=== PATIENT | male | born 1965 | race Caucasian/White ===

== ENCOUNTER 2016-04-16 08:07 | Emergency (ER) | payer MEDICARE, OTHER ==
[~2016-04-16] VITALS: Ht 185.4 cm; Wt 89.0 kg
[~2016-04-16 08:07] MED LIST: CLIN-73 PO; HYDR-762 PO; IBUP-1542 PO; LORA1TAB PO; TRUV; [UNRECOGNIZED DRUG - CODE]
[2016-04-16 08:34] VITALS: Ht 185.4 cm; Wt 89.0 kg
[2016-04-16] MEDS ORDERED: BACTDS PO (09:05)
--- NOTE | 2016-04-16 10:42 | ERD ---
ER Documentation Chief Complaint Date/Time DATE: 04/16/16 TIME: 10:33 Chief Complaint PRODUCTIVE COUGH X5 DAYS. PT CONCERNED D/T SUPRESSED IMMUNE SYSTEM HPI 50-year-old male with a past medical history of HIV presents the ED complaining of a productive cough that occurred 5 days ago. States that he takes Truvada and Kaletra for his HIV. Reports that he is unsure what is his CD4 count. States that he usually sees his primary care physician however his primary care physician is retired. Reports that he also receives Bactrim for his cough for prophylaxis. States that he is here for a prescription for Bactrim. Denies any fever, shortness of breath, wheezing, abdominal pain, nausea, vomiting, chest pain, dyspnea on exertion, pleuritic chest pain. ROS All systems reviewed and are negative except as per history of present illness. 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 09/21/14 Reported Medications Lorazepam* (Lorazepam*) 1 Mg Tablet, 1 MG PO BID Y for ANXIETY, TAB 03/11/14 Hydrocodone Bit-Acetaminophen* ([place]*) 10-325 Mg Tablet, 1 TAB PO Q6 Y for PAIN , TAB 03/11/14 Lopinavir-Ritonavir* (Kaletra*) 1 Tab Tab 06/18/10 Emtricitabine-Tenofovir* (Truvada*) 1 Tab Tab 06/18/10 Allergies Allergies: Coded Allergies: Penicillins (Verified Allergy, Mild, 08/20/15) PMhx/Soc History of Surgery: Yes (appendix removed 20 years ago) Anesthesia Reaction: No Hx Neurological Disorder: No Hx Respiratory Disorders: No Hx Cardiac Disorders: No Hx Psychiatric Problems: No Hx Miscellaneous Medical Probl: Yes (pt has been HIV positive for 25 years) Hx Alcohol Use: No Hx Substance Use: No Hx Tobacco Use: Yes Smoking Status: Unknown if ever smoked Physical Exam Vitals Vital Signs Date Time Temp Pulse Resp B/P Pulse Ox O2 Delivery O2 Flow Rate FiO2 04/16/16 08:34 98.4 89 18 150/97 100 Physical Exam Const: [id number], well-nourished. In no acute distress. Head: Atraumatic, normocephalic Eyes: Normal Conjunctiva without injection. No purulent discharge. PERRL. EOMI ENT: Normal external ear. Ear canal without erythema. Tympanic membrane pearly contreras without effusion or bulging. Nasal canal clear with normal turbinates. Moist oropharynx without tonsillar exudates. Non-erythematous pharynx. Uvula midline. No drooling. No trismus. Neck: Full range of motion. No meningismus. No cervical lymphadenopathy. Resp: Clear to auscultation bilaterally. No wheezing, rhonchi, rales, or crackles. No accessory muscle use. No retractions. Cardio: Regular rate and rhythm. No murmurs, rubs or gallops. Abd: Soft, non tender, non distended. Normal bowel sounds. No palpable masses. No rebound tenderness. No guarding. Skin: No petechiae or rashes Back: No midline tenderness. No CVA tenderness. Ext: No cyanosis, or edema. Neur: Awake and alert. Psych: Normal Mood and Affect Procedures/MDM 50-year-old male with a past medical history of HIV presents the ED complaining of a productive cough that occurred 5 days ago. Patient is afebrile and nontoxic-appearing. This patient presents to the ED with symptoms consistent with a viral acute upper respiratory infection. Patient is afebrile and has normal vital signs. Patient's physical exam include lungs which were clear to auscultation and a normal pulse oximetry. Patient is speaking in full sentences. There is a low suspicion for anaphylaxis, foreign body aspiration, pneumonia, pneumothorax, pulmonary embolism, atypical ME, cardiac tamponade, epiglottitis, otitis media, otitis externa, viral/strep pharyngitis, sinusitis, peritonsillar abscess, mastoiditis, retropharyngeal abscess, meningitis, sepsis , Blaine's angina, acute abdomen or other emergent conditions. Patient will be given a prescription for Bactrim, prophylaxis for PCP pneumonia. Discharge medications: Bactrim Follow up with primary care physician in 1-2 days. Instructed patient to return to the ED sooner for any worsening symptoms. Patient's questions were answered. Patient understood and agreed with discharge plan. Patient discharged stable. Departure Diagnosis: Primary Impression: Cough Condition: Stable Patient Instructions: Bronchitis, Antiobiotic Treatment (Adult) Referrals: [facility] YOU HAVE RECEIVED A MEDICAL SCREENING EXAM AND THE RESULTS INDICATE THAT YOU DO NOT HAVE A CONDITION THAT REQUIRES URGENT TREATMENT IN THE EMERGENCY DEPARTMENT. FURTHER EVALUATION AND TREATMENT OF YOUR CONDITION CAN WAIT UNTIL YOU ARE SEEN IN YOUR DOCTORS OFFICE WITHIN THE NEXT 1-2 DAYS. IT IS YOUR RESPONSIBILITY TO MAKE AN APPOINTMENT FOR FOLOW-UP CARE. IF YOU HAVE A PRIMARY DOCTOR --you should call your primary doctor and schedule an appointment IF YOU DO NOT HAVE A PRIMARY DOCTOR YOU CAN CALL OUR PHYSICIAN REFERRAL HOTLINE AT IF YOU CAN NOT AFFORD TO SEE A PHYSICIAN YOU CAN CHOSE FROM THE FOLLOWING [facility] [address] [facility]. [facility] [address] [facility] [facility] [address] [facility] [facility] [address] [facility] [facility] [address] [facility]. [facility]. [address] [facility]. [facility] YOU HAVE RECEIVED A MEDICAL SCREENING EXAM AND THE RESULTS INDICATE THAT YOU DO NOT HAVE A CONDITION THAT REQUIRES URGENT TREATMENT IN THE EMERGENCY DEPARTMENT. FURTHER EVALUATION AND TREATMENT OF YOUR CONDITION CAN WAIT UNTIL YOU ARE SEEN IN YOUR DOCTORS OFFICE WITHIN THE NEXT 1-2 DAYS. IT IS YOUR RESPONSIBILITY TO MAKE AN APPOINTMENT FOR FOLOW-UP CARE. IF YOU HAVE A PRIMARY DOCTOR --you should call your primary doctor and schedule and appointment IF YOU DO NOT HAVE A PRIMARY DOCTOR YOU CAN CALL OUR PHYSICIAN REFERRAL HOTLINE AT . IF YOU CAN NOT AFFORD TO SEE A PHYSICIAN YOU CAN CHOSE FROM THE FOLLOWING [facility]: [facility] [address] [place], [place] [id number] [place] [address] [address] [place] [address] [facility] + [facility] [address] [place] [address] [facility] Additional Instructions: You understand the risks of not getting a chest x-ray at this time. FOLLOW UP WITH YOUR PRIMARY CARE PHYSICIAN TOMORROW. for further care of your HIV. Return to this facility if you are not improving as expected. NATALIE HUGGINS PA-C Apr 16, 2016 10:41
== END 2016-04-16 09:27 | disposition home or self-care (01) ==
LOC: FTE 08:07
DX: R05 Cough (principal); Z72.0 Tobacco use
CPT/HCPCS: 99283

== ENCOUNTER 2016-09-06 23:59 | Emergency (ER) | payer MEDICARE, MEDICAID ==
[~2016-09-06] VITALS: Ht 177.8 cm; Wt 82.0 kg
[~2016-09-06 23:59] MED LIST changes: +BACTDS PO
[2016-09-07 00:04] VITALS: Ht 177.8 cm; Wt 82.0 kg
[2016-09-07] MEDS ORDERED: CLOT30CR24 TOP (00:55)
[2016-09-07] MEDS ORDERED: IBUP-1542 PO (00:55)
--- NOTE | 2016-09-07 01:07 | ERD ---
ER Documentation Chief Complaint Date/Time DATE: 09/07/16 TIME: 01:00 Chief Complaint chronic right foot pain HPI 50 -year-old male presents here in emergency department for complaints of chronic right foot pain, patient injured right foot 3 days ago, has been having problems with the foot ever since, patient discussed pain as throbbing pain, 6/ 10 scale, now better are worse with anything. Patient did not take an micaceous up with symptoms. Patient has dryness of the skin of the sole of the foot. Patient has history of HIV. Patient denies any reinjury. Patient has been saying that this has been chronic pain. Patient is requesting for an orthopedic boot to help with walking. Patient denies any fever or chills. ROS All systems reviewed and are negative except as per history of present illness. Medications Home Meds Active Scripts Clotrimazole* (Clotrimazole* AF) 1% - 30 Gm Cream.gm., 1 APPLIC TOP BID for 7 Days, TUB Prov:ALIYA VILLA NP 09/07/16 Ibuprofen* (Motrin*) 600 Mg Tab, 600 MG PO Q6H Y for PAIN AND OR ELEVATED TEMP, #30 TAB Prov:ALIYA VILLA NP 09/07/16 Sulfamethoxazole-Trimethoprim* (Bactrim* DS) 800-160 Mg Tab, 1 TAB PO BID for 10 Days, TAB Prov:NATALIE HUGGINS PA-C 04/16/16 Ibuprofen* (Motrin*) 600 Mg Tab, 600 MG PO Q6, #30 TAB Prov:NELLA KOVACS 08/20/15 Clindamycin Hcl* (Clindamycin Hcl*) 300 Mg Capsule, 600 MG PO TID for 10 Days, CAP Prov:ALIYA VILLA NP 09/21/14 Reported Medications Lorazepam* (Lorazepam*) 1 Mg Tablet, 1 MG PO BID Y for ANXIETY, TAB 03/11/14 Hydrocodone Bit-Acetaminophen* ([place]*) 10-325 Mg Tablet, 1 TAB PO Q6 Y for PAIN , TAB 03/11/14 Lopinavir-Ritonavir* (Kaletra*) 1 Tab Tab 06/18/10 Emtricitabine-Tenofovir* (Truvada*) 1 Tab Tab 3/5/11 Allergies Allergies: Coded Allergies: Penicillins (Verified Allergy, Mild, 08/20/15) PMhx/Soc History of Surgery: Yes (appendix removed 20 years ago) Anesthesia Reaction: No Hx Neurological Disorder: No Hx Respiratory Disorders: No Hx Cardiac Disorders: No Hx Psychiatric Problems: No Hx Miscellaneous Medical Probl: Yes (pt has been HIV positive for 25 years) Hx Alcohol Use: No Hx Substance Use: No Hx Tobacco Use: Yes Smoking Status: Never smoker FmHx Family History: No coronary disease, No diabetes, No other Physical Exam Vitals Vital Signs Date Time Temp Pulse Resp B/P Pulse Ox O2 Delivery O2 Flow Rate FiO2 09/07/16 00:04 97.7 83 20 126/89 98 Physical Exam GENERAL: The patient is well developed and appropriate for usual state of health, in no apparent distress. CHEST: Clear to auscultation bilaterally. There are no rales, wheezes or rhonchi. HEART: Regular rate and rhythm. No murmurs, clicks, rubs or gallops. No S3 or S4. ABDOMEN: Soft, nontender and nondistended. Good bowel sounds. No rebound or guarding. No gross peritonitis. No gross organomegaly or masses. No Baer sign or McBurney point tenderness. BACK: No midline or flank tenderness. EXTREMITIES: Equal pulses bilaterally. There is no peripheral clubbing, cyanosis or edema. No focal swelling or erythema. Full range of motion. Grossly neurovascularly intact. NEURO: Alert and oriented. Cranial nerves 2-12 intact. Motor strength in all 4 extremities with 5/5 strength. Sensation grossly intact. Normal speech and gait. SKIN: Noted dryness of the skin and maceration of the skin on the sole of the right foot. There is no apparent rash or petechia. The skin is warm and dry. HEMATOLOGIC AND LYMPHATIC: There is no evidence of excessive bruising or lymphedema. No gross cervical, axillary, or inguinal lymphadenopathy. Results 24 hrs After receiving patients xray report, a orthopedic shoe was applied on the patients right foot. After application of the splint, patient has intact sensation and circulation on distal area of the affected joint. Patient does not complain of numbness or tingling after application of the splint. Patient tolerated procedure well. Procedures/MDM Medical decision making: Patient's symptoms most active consistent with chronic pain. Radiology exams the indicated at this time, no reinjury noted. No symptoms of any infection, and symptoms of any cellulitis. No symptoms of any neurovascular compromise. Patient has tinea pedis of the area. Patient will be treated, will be given ibuprofen for pain, will be given orthopedic shoe, will be given clotrimazole 1% cream to apply on affected area. Patient was advised to follow with primary care doctor for reevaluation of symptoms in 5-7 days. Patient was advised to return to emergency department for any worsening symptoms. Disposition: Home. Stable. Departure Diagnosis: Primary Impression: Chronic pain Chronic pain type: other chronic pain Qualified Code: G89.29 - Other chronic pain Additional Impression: Tinea pedis Laterality: right Qualified Code: B35.3 - Tinea pedis of right foot Condition: Stable Patient Instructions: Chronic Pain ALIYA VILLA NP September 07, 2016 01:07
[2016-09-07 01:23] VITALS: BP 122/73; PULSE 86; RESP 18; TEMP 98.5
== END 2016-09-07 01:24 | disposition home or self-care (01) ==
LOC: FTE 23:59
DX: G89.29 Other chronic pain (principal); B35.3 Tinea pedis; Z87.891 Personal history of nicotine dependence
CPT/HCPCS: 99283